=== PATIENT | female | born 1975 | race Two or more races ===

== ENCOUNTER 2024-08-12 06:25 | Inpatient (IN) | payer MEDICAID ==
[~2024-08-12] VITALS: Ht 157.5 cm; Wt 92.1 kg
[2024-08-12 07:20] VITALS: PULSE 142; RESP 20; O2SAT 95
--- NOTE | 2024-08-12 07:22 | ED.PDOC ---
History of Present Illness HPI Comments 49 year old female presents to the ED with a chief complaint of dizziness onset today (08/12/24). Patient states she bend over to steel pickler her phone from the floor, when she got up she began experiencing dizziness, sweats, shaking, palpitations that have not stopped since. Upon assessment patient's HR was 142- 150, BP 168/97. Denies any PMHx as well as fever, chills, nausea, vomiting, diarrhea, abdominal pain, shortness of breath, cough, congestion. No other symptoms or modifying factors present at this time. Chief Complaint: Dizziness Time Seen by MD: 06:15 Reviewed Notes: Medications, Allergies Allergies: Coded Allergies: NO KNOWN ALLERGIES (Unverified , 08/12/24) Information Source: Patient Mode of Arrival: Ambulatory Severity: Moderate Timing: Hours Duration: Since onset Prehospital treatment: None Past Medical History PAST MEDICAL HISTORY: Denies Surgical History: Denies all surgeries CARD READER History: No Pertinent CARD READER History Family History Family History: Reviewed,noncontributory to illness, No family hx of Cancer, No family hx of DM, No family hx of Heart mattie, No family hx of HTN, No family hx ofKidney mattie, No family hx of Liver mattie, No family hx of Lung mattie, No family hx of Stroke Social History Smoker: Non-Smoker Alcohol: Denies ETOH Use Drugs: Denies Drug Use Lives In: Home Constitutional: reports: sweats; denies: chills, diaphoresis, fatigue, fever, malaise, weakness, others EENTM: denies: blurred vision, double vision, ear bleeding, ear discharge, ear drainage, ear pain, ear ringing, eye pain, eye redness, hearing loss, mouth pain, mouth swelling, nasal discharge, nose bleeding, nose congestion, nose pain, photophobia, tearing, throat pain, throat swelling, voice changes, others Respiratory: denies: cough, hemoptysis, orthopnea, SOB at rest, shortness of breath, SOB with excertion, stridor, wheezing, others Cardiovascular: reports: palpitations; denies: chest pain, dizzy spells, diaphoresis, Dyspnea on exertion, edema, irregular heart beat, left arm pain, lightheadedness, PND, syncope, others Gastrointestinal: denies: abdomen distended, abdominal pain, blood streaked bowels, constipated, diarrhea, dysphagia, difficulty swallowing, hematemesis, melena, nausea, poor appetite, poor fluid intake, rectal bleeding, rectal pain, vomiting, others Genitourinary: denies: abnormal vagina bleeding, burning, dyspareunia, dysuria, flank pain, frequency, hematuria, incontinence, pain, , vagina discharge, urgency, others Neurological: reports: dizziness; denies: fainting, headache, left sided numbness, left sided weakness, numbness, paresthesia, pre-existing deficit, right sided numbness, right sided weakness, seizure, speech problems, tingling, tremors, weakness, others Musculoskeletal: denies: back pain, gout, joint pain, joint swelling, muscle pain, muscle stiffness, neck pain, others Integumetry: denies: bruises, change in color, change in hair/nails, dryness, laceration, lesions, lumps, rash, wounds, others Allergic/Immunocompromised: denies: Difficulty Healing, Frequent Infections, Hives, Itching, others Hematologic/Lymphatic: denies: anemia, blood clots, easy bleeding, easy bruising, swollen glands, others Endocrine: denies: excessive hunger, excessive sweating, excessive thirst, excessive urination, flushing, intolerance to cold, intolerance to heat, unexplained weight gain, unexplained weight loss, others Psychiatric: denies: anxiety, bipolar disorder, depression, hopeless, panic disorder, schizophrenia, sleepless, suicidal, others All Other Systems: Reviewed and Negative Physical Exam General Appearance: No Apparent Distress, Normal HEENT: Normal ENT Inspection, Pharynx Normal, TMs Normal Neck: Full Range of Motion, Non-Tender, Normal, Normal Inspection Respiratory: Chest Non-Tender, Lungs Clear, No Accessory Muscle Use, No Respiratory Distress, Normal Breath Sounds Cardiovascular: No Edema, No JVD, No Murmur, No Gallop, Normal Peripheral Pulses, Tachycardia Breast Exam: Deferred Gastrointestinal: No Organomegaly, Non Tender, No Pulsatile Mass, Normal Bowel Sounds, Soft Genitalia: Deferred Pelvic: Deferred Rectal: Deferred Extremities: No calf tenderness, Normal capillary refill, Normal inspection, Normal range of motion, Non-tender, No pedal edema Musculoskeletal : Apperance: Normal Neurologic: Alert, aging room operator II-XII nml as Tested, No Motor Deficits, Normal Affect, Normal Mood, No Sensory Deficits Cerebellar Function: Normal Reflexes: Normal Skin: Dry, Normal Color, Warm Lymphatic: No Adenopathy Was a procedure done? Was a procedure done?: No Differential Dx Considerations may include: Viral syndrome, ACS, urinary tract infection, cardiac arrhythmia X-Ray, Labs, Meds, VS Vital Signs Date Time Temp Pulse Resp B/P (MAP) Pulse Ox O2 Delivery O2 Flow Rate FiO2 08/12/24 08:45 122 162/71 (101) 08/12/24 07:36 130 08/12/24 07:26 142 176/104 145 179/98 08/12/24 07:20 142 20 95 Room Air* 0 21 08/12/24 06:40 138 08/12/24 06:30 98.0 142 18 168/97 (120) 96 Lab Test 08/12/24 08:06 08/12/24 07:02 08/12/24 06:40 Range/Units Troponin I High Sensitivity < 3 L < 3 L </=34 ng/L White Blood Count 12.1 H 4.4-10.8 10^3/uL Red Blood Count 5.44 H 4.0-5.20 10^6/uL Hemoglobin 14.1 12.2-16.2 g/dL Hematocrit 42.2 36.0-46.0 % Mean Corpuscular Volume 77.6 L 80.0-100.0 fL Mean Corpuscular Hemoglobin 25.8 L 28.0-32.0 pg Mean Corpuscular Hemoglobin Concent 33.3 32.0-36.0 g/dL Red Cell Distribution Width 15.7 H 11.8-14.3 % Platelet Count 385 140-450 10^3/uL Mean Platelet Volume 8.9 6.9-10.8 fL Neutrophils (%) (Auto) 37.0-80.0 % Lymphocytes (%) (Auto) 10.0-50.0 % Monocytes (%) (Auto) 0.0-12.0 % Basophils (%) (Auto) 0.0-2.0 % Neutrophils # (Auto) 1.6-8.6 10 ^3/uL Lymphocytes # (Auto) 0.4-5.4 10 ^3/uL Monocytes # (Auto) 0-1.3 10 ^3/uL Differential Total Cells Counted 100.0 100 Neutrophils % (Manual) 52 37.0-80.0 Band Neutrophils % (Manual) 0 Lymphocytes % (Manual) 44 10.0-50.0 Monocytes % (Manual) 4 0-12 Eosinophils % (Manual) 0 0-7 Basophils % (Manual) 0 0.0-2.0 Metamyelocytes % (manual) 0 Myelocytes % (Manual) 0 Promyelocytes % (Manual) 0 Blast Cells % (Manual) 0 Reactive Lymphocytes 0 Platelet Estimate Adequate Large Platelets Few Sodium Level 137 136-145 mmol/L Potassium Level 4.0 3.5-5.1 mmol/L Chloride Level 100 98-107 mmol/L Carbon Dioxide Level 25 20-31 mmol/L Anion Gap 12 5-15 Blood Urea Nitrogen 13 9-23 mg/dL Creatinine 0.65 0.550-1.02 mg/dL Glomerular Filtration Rate Calc 108 >90 mL/min BUN/Creatinine Ratio 20.0 10.0-20.0 Serum Glucose 120 H 74-106 mg/dL Calcium Level 9.6 8.7-10.4 mg/dL Urine Color Colorless Yellow Urine Clarity Turbid H Clear Urine pH 7.0 5.0-9.0 Urine Specific [place] 1.018 1.001-1.035 Urine Protein 1+ H Negative Urine Ketones Negative Negative Urine Blood 1+ H Negative /uL Urine Nitrite Negative Negative Urine Bilirubin Negative Negative Urine Urobilinogen Normal Negative mg/dL Urine Leukocyte Esterase 2+ Negative /uL Urine RBC 22 0 - 4 /hpf Urine Microscopic WBC 20 H 0-5 /HPF Urine Squamous Epithelial Cells Few <5 /hpf Urine Amorphous Crystals Few None Seen /hpf Urine Bacteria Few H None Seen /hpf Urine Glucose Normal Normal mg/dL Urine Test Negative Negative Current Medications Medications (Trade) Dose Ordered Sig/Stef Route Start Time Stop Time Status Last Admin Sodium Chloride 1,000 ml @ 1,000 mls/hr Q1H ONCE IV 08/12/24 07:30 08/12/24 08:29 DC 08/12/24 07:40 Ondansetron HCl (Zofran) 4 mg ONCE ONCE IV 08/12/24 07:30 08/12/24 07:31 DC 08/12/24 07:[address] [address] Ph: [phone] DIAGNOSTIC IMAGING Diagnostic Imaging Report : [id number] Signed PATIENT: DILLONLELA RACCT: [id number] UNIT: [id number] : 1975 LOC: ER ROOM / BED: / AGE / SEX: 49 / F ADM STATUS: REG ER SERVICE 5 ORDERING PHYSICIAN: SPENCER STEINER MD PROCEDURE(s): CXRP - CHEST PORTABLE REASON: near syncope ORDER NUMBER(s): [id number], ACCESSION NUMBER(s): [id number] EXAM: XY CHEST PORTABLE Indication: near syncope Technique: Single frontal view of the chest was obtained Comparison: None FINDINGS: Lines and Tubes: None Lungs: No focal consolidation. Pleura: No effusion. No pneumothorax. Cardiomediastinal contours: Unremarkable Bones: No acute osseous abnormality. IMPRESSION: No acute cardiopulmonary disease. ATED BY: AURA VICTOR MD DICTATED DATE/TIME: 08/12/24828 SIGNED BY: AURA VICTOR MD SIGNED DATE/TIME: 08/12/24828 CC: Time of 1ST Reevaluation: 06:45 Reevaluation 1ST: Unchanged Patient Education/Counseling: Diagnosis, Treatment, Prognosis Family Education/Counseling: No Family Present Additional Information The following tests were ordered, and results were reviewed by me: EKG -x3, BMP, CBC, TROP -x3, XY CHEST, PREGUA, UA I reviewed and agreed with the following test results read by other providers: XY CHEST I discussed treatment and results with medical personnel and: patient Departure 1 Departure Time of Disposition: 10:05 (Patient has a urinary tract infection causing tachycardia your syncope. We will empirically cover patient with antibiotics fluids and admit patient for further workup) Impression: Primary Impression: Complicated urinary tract infection Additional Impression: Near syncope Disposition: ADMITTED INPATIENT Admit to: Med Surg Condition: Serious Critical Care Note Critical Care Time?: No Stability Stability form required: No I personally scribed for SPENCER STEINER MD ([email or web address]) on 08/12/24 at 07:22. Electronically submitted by Suzy Odell ([email or web address]). I personally scribed for SPENCER STEINER MD ([email or web address]) on 08/12/24 at 07:41. Electronically submitted by Suzy Odell ([email or web address]). I personally scribed for SPENCER STEINER MD ([email or web address]) on 08/12/24 at 08:35. Electronically submitted by Suzy Odell ([email or web address]). SPENCER STEINER MD Aug 12, 2024 07:22
[2024-08-12 07:34] LABS: Urine Amorphous Crystal FEW /hpf (None Seen); Urine Bacteria FEW /hpf (None Seen); Urine Blood 1+ /uL (Negative); Urine Clarity Turbid (Clear); Urine Color Colorless (Yellow); Urine Protein, UAD 1+ (Negative); Urine Specific Gravity 1.018 (1.001-1.035); Urine Squamous Epithelial Cell FEW /hpf (<5); Urine Urobilinogen Normal (Negative); Urine WBC 20 /HPF (0-5)
--- NOTE | 2024-08-12 07:37 | ECG ---
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
[2024-08-12 07:38] LABS: Hematocrit 42.2 % (36.0-46.0); Hemoglobin 14.1 g/dL (12.2-16.2); Mean Corpuscular Hemoglobin 25.8 pg (28.0-32.0); Mean Corpuscular Hgb Conc. 33.3 g/dL (32.0-36.0); Mean Corpuscular Volume 77.6 fL (80.0-100.0); Platelet Count (auto) 385 10^3/uL (140-450); Red Blood Cells 5.44 10^6/uL (4.0-5.20); Red Cell Distribution Width 15.7 % (11.8-14.3); White Blood Cell 12.1 10^3/uL (4.4-10.8)
[2024-08-12] MEDS: SODIUM CHLORIDE 0.9% 1,000 ML IV ONE ×3 (07:40→10:01)
[2024-08-12] MEDS: ONDANSETRON HCL 4 MG/2 ML VIAL IV ONE (07:40)
[2024-08-12 08:09] LABS: Chloride 100 mmol/L (98-107); Sodium 137 mmol/L (136-145)
[2024-08-12 08:10] LABS: Anion Gap 12 (5-15); Calcium 9.6 mg/dL (8.7-10.4); Carbon Dioxide 25 mmol/L (20-31)
[2024-08-12 08:15] LABS: Blood Urea Nitrogen 13 mg/dL (9-23)
[2024-08-12 08:16] LABS: Glucose 120 mg/dL (74-106)
[2024-08-12 08:23] LABS: Band Neutrophils % (manual) 0; Basophils % (manual) 0 (0.0-2.0); Blast Cells 0; Eosinophils % (manual) 0 (0-7); Metamyelocytes % 0; Myelocytes % 0; Promyelocytes % 0; Reactive Lymphocytes 0
--- NOTE | 2024-08-12 08:30 | DVH ---
EXAM: XY CHEST PORTABLE Indication: near syncope Technique: Single frontal view of the chest was obtained Comparison: None FINDINGS: Lines and Tubes: None Lungs: No focal consolidation. Pleura: No effusion. No pneumothorax. Cardiomediastinal contours: Unremarkable Bones: No acute osseous abnormality. IMPRESSION: No acute cardiopulmonary disease.
--- NOTE | 2024-08-12 09:39 | ECG ---
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
[2024-08-12] MEDS ORDERED: CEFEPIME 2GM/50ML NS 50 ML IV ONE (09:45)
[2024-08-12 09:49] LABS: Lymphocytes % (manual) 44 (10.0-50.0); Monocytes % (manual) 4 (0-12)
[2024-08-12 09:50] LABS: Large Platelets FEW
[2024-08-12 09:51] LABS: Platelet Estimate Adequate
[2024-08-12] MEDS: CEFEPIME 2GM/50ML NS 50 ML IV ONE (10:02)
[2024-08-12] MEDS: VANCOMYCIN 1GM/250ML KIT 200 ML IV ONE (10:22)
[2024-08-12] MEDS ORDERED: DOCUSATE SOD 100 MG CAP PO PRN ×2 (10:30→10:45)
[2024-08-12] MEDS ORDERED: NITROGLYCERIN 0.4 MG SL TAB SL PRN ×2 (10:30→10:45)
[2024-08-12] MEDS ORDERED: HYDROcodone-ACET 5/325MG TAB PO PRN ×2 (10:30→10:45)
[2024-08-12] MEDS ORDERED: ACETAMINOPHEN 325 MG TAB PO PRN ×2 (10:30→10:45)
[2024-08-12] MEDS ORDERED: ONDANSETRON HCL 4 MG/2 ML VIAL IV PRN ×2 (10:30→10:45)
[2024-08-12] MEDS ORDERED: MORPHINE SULFATE INJ 2 MG/ml SYRG IV PRN ×2 (10:30→10:45)
--- NOTE | 2024-08-12 10:30 | DVHHP2 ---
History of Present Illness Reason for Visit: Dizziness History of Present Illness Sherrie Vora is a 49-year-old female, with no significant past medical history, who came to the ER for dizziness. Patient states she woke up about 0600, went to bathroom without any problems. When she got back into bed and reached for her phone the room began spinning. She states she felt palpitations, began shaking, and felt tingling throughout her body. The symptoms continued, so she told her spouse that she needs to go to the ER. She had him get her clothes because she was too unstable to stand and walk. On assessment, she is still experiencing tingling in bilateral hands and remains tachycardic. Past Surgical History: None Smoke: No ALCOHOL: none Drugs: None Lives: with Family Domestic Violence: Neg Review of Systems Constitutional: No: Fever, Chills, Sweats, Weakness, Malaise, Other Eyes: No: Pain, Vision change, Conjunctivae inflammation, Eyelid inflammation, Other, Redness ENT: No: Ear pain, Ear discharge, Nose pain, Nose discharge, Nose congestion, Mouth pain, Mouth swelling, Throat pain, Throat swelling, Other Respiratory: No: Cough, Dry, Shortness of breath, SOB with excertion, Wheezing, Hemoptysis, Pleuritic Pain, Sputum, Wheezing, Other Cardiovascular: Palpitations, Lt Headedness; No: Chest Pain, Orthopnea, Paroxy smal Noc. Dyspnea, Edema, Other Gastrointestinal: No: Nausea, Vomiting, Abdominal Pain, Diarrhea, Constipation, Melena, Hematochezia, Other Genitourinary: No Dysuria, No Frequency, No Incontinence, No Hematuria, No Retention, No Other Musculoskeletal: No: other, neck pain, shoulder pain, arm pain, back pain, hand pain, leg pain, foot pain Skin: No: Rash, Lesions, Jaundice, Bruising, Other Neurological: Numbness (tingling throughout body), Other (Dizziness, ); No: Weakness, Incoordination, Change in speech, Confusion, Seizures Allergies: Coded Allergies: NO KNOWN ALLERGIES (Unverified , 08/12/24) Exam Vital Signs Vital Signs Date Time Temp Pulse Resp B/P (MAP) Pulse Ox O2 Delivery O2 Flow Rate FiO2 08/12/24 09:38 117 08/12/24 08:45 162/71 (101) 08/12/24 07:20 20 95 Room Air* 0 21 08/12/24 06:30 98.0 General Appearance: Alert, Oriented X3, Cooperative, moderate distress HEENT: Atraumatic, PERRLA Respiratory: Clear to auscultation, Normal air movement Cardiovascular: Normal S1, Normal S2, Other (Tachycardia) Abdominal: Normal bowel sounds, Soft, No tenderness, No hepatospenomegaly Extremities: No clubbing, No cyanosis, No edema, Normal pulses, No tenderness/swelling Skin: No rashes, No breakdown, No significant lesion Neuro: Normal gait, Normal speech, Strength at 5/5 X4 ext, Normal tone Psych/Mental Status: Mental status NL, Mood NL Labs/Xrays Labs Test 08/12/24 09:59 08/12/24 07:02 08/12/24 06:40 Range/Units White Blood Count 12.1 H 4.4-10.8 10^3/uL Red Blood Count 5.44 H 4.0-5.20 10^6/uL Hemoglobin 14.1 12.2-16.2 g/dL Hematocrit 42.2 36.0-46.0 % Mean Corpuscular Volume 77.6 L 80.0-100.0 fL Mean Corpuscular Hemoglobin 25.8 L 28.0-32.0 pg Mean Corpuscular Hemoglobin Concent 33.3 32.0-36.0 g/dL Red Cell Distribution Width 15.7 H 11.8-14.3 % Platelet Count 385 140-450 10^3/uL Mean Platelet Volume 8.9 6.9-10.8 fL Neutrophils (%) (Auto) 37.0-80.0 % Lymphocytes (%) (Auto) 10.0-50.0 % Monocytes (%) (Auto) 0.0-12.0 % Basophils (%) (Auto) 0.0-2.0 % Neutrophils # (Auto) 1.6-8.6 10 ^3/uL Lymphocytes # (Auto) 0.4-5.4 10 ^3/uL Monocytes # (Auto) 0-1.3 10 ^3/uL Differential Total Cells Counted 100.0 100 Neutrophils % (Manual) 52 37.0-80.0 Band Neutrophils % (Manual) 0 Lymphocytes % (Manual) 44 10.0-50.0 Monocytes % (Manual) 4 0-12 Eosinophils % (Manual) 0 0-7 Basophils % (Manual) 0 0.0-2.0 Metamyelocytes % (manual) 0 Myelocytes % (Manual) 0 Promyelocytes % (Manual) 0 Blast Cells % (Manual) 0 Reactive Lymphocytes 0 Platelet Estimate Adequate Large Platelets Few Sodium Level 137 136-145 mmol/L Potassium Level 4.0 3.5-5.1 mmol/L Chloride Level 100 98-107 mmol/L Carbon Dioxide Level 25 20-31 mmol/L Anion Gap 12 5-15 Blood Urea Nitrogen 13 9-23 mg/dL Creatinine 0.65 0.550-1.02 mg/dL Glomerular Filtration Rate Calc 108 >90 mL/min BUN/Creatinine Ratio 20.0 10.0-20.0 Serum Glucose 120 H 74-106 mg/dL Calcium Level 9.6 8.7-10.4 mg/dL Urine Color Colorless Yellow Urine Clarity Turbid H Clear Urine pH 7.0 5.0-9.0 Urine Specific [place] 1.018 1.001-1.035 Urine Protein 1+ H Negative Urine Ketones Negative Negative Urine Blood 1+ H Negative /uL Urine Nitrite Negative Negative Urine Bilirubin Negative Negative Urine Urobilinogen Normal Negative mg/dL Urine Leukocyte Esterase 2+ Negative /uL Urine RBC 22 0 - 4 /hpf Urine Microscopic WBC 20 H 0-5 /HPF Urine Squamous Epithelial Cells Few <5 /hpf Urine Amorphous Crystals Few None Seen /hpf Urine Bacteria Few H None Seen /hpf Urine Glucose Normal Normal mg/dL Urine Test Negative Negative EXAM: XY CHEST PORTABLE FINDINGS: Lines and Tubes: None Lungs: No focal consolidation. Pleura: No effusion. No pneumothorax. Cardiomediastinal contours: Unremarkable Bones: No acute osseous abnormality. IMPRESSION: No acute cardiopulmonary disease. Assessment/Plan Assessment/Plan Assessment: Complicated urinary tract infection, Possible vertigo, Possible SVT, Hyperglycemia, Plan: Admit to Tele, IV hydration, IV antibiotics, ECHO, Consider cardiology consult, A1c, TSH, Urine culture, Blood cultures, Plan discussed with: Patient Date of Service: Aug 12, 2024 Billing Provider: TONY ROSARIO Common Visit Codes: [id number] INP/OBS CARE (MOD) TONY ROSARIO Aug 12, 2024 10:30
[2024-08-12 11:40] VITALS: BP 126/72; PULSE 126; RESP 16; TEMP 92.8; O2SAT 98
[2024-08-12 13:00] VITALS: BP 158/75; PULSE 117; RESP 16; TEMP 98.2; O2SAT 97
--- NOTE | 2024-08-12 13:46 | ECG ---
[facility] Test Date: 2024-08-12 Test Time: 06:40:57 Pat Name: LELA CARRANZA Department: ED Room: [address] [place] [address] Gender: F Marketing Administrator: PINO : 1975 Requested By: EMERGENCY EMERGENCY Order Number: [id number] Reading MD: William Ro Measurements Intervals [place] Rate: 138 P: 33 [place]: 70 QRS: 33 QRSD: 79 T: -85 QT: 311 QTc: 472 Interpretive Statements Sinus tachycardia Borderline repol abnormality, diffuse leads Electronically Signed On 08-16-2024 17:27:19 PST by William Ro Please click the below link to view image of tracing.
[2024-08-12 17:00] VITALS: BP 148/85; PULSE 116; RESP 18; TEMP 98.3; O2SAT 97
[2024-08-12 20:54] VITALS: BP 156/97; PULSE 122; RESP 20; TEMP 98.2; O2SAT 96
[2024-08-12 21:00] VITALS: BP 119/77; PULSE 107; RESP 20; TEMP 97.6; O2SAT 93
[2024-08-12] MEDS: LABETALOL HCL 20 MG/4 ML VL IV ONE (21:48)
[2024-08-13] VITALS (8 sets, daily range): BP systolic 118–157; BP diastolic 77–85; PULSE 90–107; RESP 18–20; TEMP 97.7–98.1; O2SAT 94–96
[2024-08-13 07:44] LABS: Basophils # (auto) 0 10 ^3/uL (0-0.2); Basophils % (auto) 0.6 % (0.0-2.0); Eosinophils # (auto) 0.1 10 ^3/uL (0-0.8); Lymphocytes # (auto) 1.8 10 ^3/uL (0.4-5.4); Neutrophils # (auto) 5.4 10 ^3/uL (1.6-8.6); Nucleated Red Blood Cells % 0.1 %; Red Blood Cells 5.22 10^6/uL (4.0-5.20); White Blood Cell 7.8 10^3/uL (4.4-10.8)
[2024-08-13 07:49] LABS: Eosinophils % (auto) 0.7 % (0.0-7.0); Hematocrit 40.4 % (36.0-46.0); Hemoglobin 13.1 g/dL (12.2-16.2); Lymphocytes % (auto) 22.7 % (10.0-50.0); Mean Corpuscular Hemoglobin 25.1 pg (28.0-32.0); Mean Corpuscular Hgb Conc. 32.4 g/dL (32.0-36.0); Mean Corpuscular Volume 77.4 fL (80.0-100.0); Monocytes # (auto) 0.6 10 ^3/uL (0-1.3); Monocytes % (auto) 7.3 % (0.0-12.0); Neutrophils % (auto) 68.7 % (37.0-80.0); Platelet Count (auto) 372 10^3/uL (140-450); Red Cell Distribution Width 15.9 % (11.8-14.3)
[2024-08-13 08:03] LABS: Alanine Aminotransferase 17 U/L (7-40); Albumin 4.5 g/dL (3.2-4.8); Alkaline Phosphatase 100 U/L (46-116); Anion Gap 11 (5-15); Calcium 9.7 mg/dL (8.7-10.4); Carbon Dioxide 24 mmol/L (20-31); Chloride 104 mmol/L (98-107); Glucose 105 mg/dL (74-106); Potassium 3.6 mmol/L (3.5-5.1); Sodium 139 mmol/L (136-145)
[2024-08-13 08:04] LABS: Bilirubin, Total 0.4 mg/dL (0.2-1.0); Total Protein 6.9 g/dL (5.7-8.2)
[2024-08-13 08:07] LABS: Aspartate Aminotransferase 13 U/L (13-40); Blood Urea Nitrogen 7 mg/dL (9-23)
[2024-08-13] MEDS: cefTRIAXone 1GM/50ML D5W 50 ML IV SCH (09:02)
[2024-08-13] MEDS ORDERED: BACDST PO (16:54)
--- NOTE | 2024-08-13 18:23 | DVHDS2 ---
Discharge Summary Date of Admission Aug 12, 2024 at 10:22 Date of Discharge: Aug 13, 2024 Labs/Diagnostic Data: Laboratory Results Test 08/13/24 06:20 08/12/24 09:59 08/12/24 07:03 08/12/24 07:02 White Blood Count 7.8 10^3/uL (4.4-10.8) Red Blood Count 5.22 10^6/uL (4.0-5.20) Hemoglobin 13.1 g/dL (12.2-16.2) Hematocrit 40.4 % (36.0-46.0) Mean Corpuscular Volume 77.4 fL (80.0-100.0) Mean Corpuscular Hemoglobin 25.1 pg (28.0-32.0) Mean Corpuscular Hemoglobin Concent 32.4 g/dL (32.0-36.0) Red Cell Distribution Width 15.9 % (11.8-14.3) Platelet Count 372 10^3/uL (140-450) Mean Platelet Volume 7.8 fL (6.9-10.8) Neutrophils (%) (Auto) 68.7 % (37.0-80.0) Lymphocytes (%) (Auto) 22.7 % (10.0-50.0) Monocytes (%) (Auto) 7.3 % (0.0-12.0) Eosinophils (%) (Auto) 0.7 % (0.0-7.0) Basophils (%) (Auto) 0.6 % (0.0-2.0) Neutrophils # (Auto) 5.4 10 ^3/uL (1.6-8.6) Lymphocytes # (Auto) 1.8 10 ^3/uL (0.4-5.4) Monocytes # (Auto) 0.6 10 ^3/uL (0-1.3) Eosinophils # (Auto) 0.1 10 ^3/uL (0-0.8) Basophils # (Auto) 0 10 ^3/uL (0-0.2) Nucleated Red Blood Cells 0.1 % Sodium Level 139 mmol/L (136-145) Potassium Level 3.6 mmol/L (3.5-5.1) Chloride Level 104 mmol/L (98-107) Carbon Dioxide Level 24 mmol/L (20-31) Anion Gap 11 (5-15) Blood Urea Nitrogen 7 mg/dL (9-23) Creatinine 0.54 mg/dL (0.550-1.02) Glomerular Filtration Rate Calc 113 mL/min (>90) BUN/Creatinine Ratio 13.0 (10.0-20.0) Serum Glucose 105 mg/dL (74-106) Calcium Level 9.7 mg/dL (8.7-10.4) Total Bilirubin 0.4 mg/dL (0.2-1.0) Aspartate Amino Transferase (AST) 13 U/L (13-40) Alanine Aminotransferase (ALT) 17 U/L (7-40) Alkaline Phosphatase 100 U/L (46-116) Total Protein 6.9 g/dL (5.7-8.2) Albumin 4.5 g/dL (3.2-4.8) Lactic Acid Level 1.9 mmol/L (0.4-2.0) Troponin I High Sensitivity 4 ng/L (</=34) Thyroid Stimulating Hormone (TSH) 1.60 uIU/mL (0.55-4.78) Differential Total Cells Counted 100.0 (100) Neutrophils % (Manual) 52 (37.0-80.0) Band Neutrophils % (Manual) 0 Lymphocytes % (Manual) 44 (10.0-50.0) Monocytes % (Manual) 4 (0-12) Eosinophils % (Manual) 0 (0-7) Basophils % (Manual) 0 (0.0-2.0) Metamyelocytes % (manual) 0 Myelocytes % (Manual) 0 Promyelocytes % (Manual) 0 Blast Cells % (Manual) 0 Reactive Lymphocytes 0 Platelet Estimate Adequate Large Platelets Few Hemoglobin A1c 5.3 % A1C (<5.7) Test 08/12/24 06:40 Urine Color Colorless (Yellow) Urine Clarity Turbid (Clear) Urine pH 7.0 (5.0-9.0) Urine Specific [place] 1.018 (1.001-1.035) Urine Protein 1+ (Negative) Urine Ketones Negative (Negative) Urine Blood 1+ /uL (Negative) Urine Nitrite Negative (Negative) Urine Bilirubin Negative (Negative) Urine Urobilinogen Normal mg/dL (Negative) Urine Leukocyte Esterase 2+ /uL (Negative) Urine RBC 22 /hpf (0 - 4) Urine Microscopic WBC 20 /HPF (0-5) Urine Squamous Epithelial Cells Few /hpf (<5) Urine Amorphous Crystals Few /hpf (None Seen) Urine Bacteria Few /hpf (None Seen) Urine Glucose Normal mg/dL (Normal) Urine Test Negative (Negative) Other Laboratory Tests 08/13/24 06:20 Brief Hx & Hospital Course: Sherrie Vora is a 49-year-old female, with no significant past medical history, who came to the ER for dizziness. Patient states she woke up about 0600, went to bathroom without any problems. When she got back into bed and reached for her phone the room began spinning. She states she felt palpitations, began shaking, and felt tingling throughout her body. The symptoms continued, so she told her spouse that she needs to go to the ER. She had him get her clothes because she was too unstable to stand and walk. On assessment, she is still experiencing tingling in bilateral hands and remains tachycardic. Found to have UTI, and treated with IV abx tachycardia and hyperglycemia resolved with no SVT noted Echo was pending on discharge Condition at Discharge: Good Final Diagnosis/Problems List Complicated urinary tract infection SVT ruled out Tachycardia resolved dizziness resolved Hyperglycemia resolved Discharge Disposition: Home Discharge Instruct/Medications Diet: Regular Activity: No Restrictions, As Tolerated Discharge Statement: "Patient was advised to return to the ER or call 911 if any headaches, dizziness, shortness of breath, chest pain, abdominal pain, bleeding, fevers, or worsening of medical condition. Patient was counseled about treatment plan, medications, possible side effects, patientverbalized understanding. All questions were answered to the best of my ability. This discharge took greater then 30 minutes in planning, reviewing documentation, counseling the patient, and discussing with other team members." ASSESSMENT ASSESSMENT Assessment Date of Service: Aug 13, 2024 Billing Provider: RAFAT HALL MD Common Visit Codes: [id number] DISCH DAY >30min RAFAT HALL MD Aug 13, 2024 18:22
--- NOTE | 2024-08-13 19:58 | DVHSR ---
APPROVED REPORT EXAM: Two-dimensional and M-mode echocardiogram with Doppler and color Doppler. Blood Pressure: 157/84 mmHg INDICATION Dizziness and Vertigo Palpitations Tachycardia RISK FACTORS Obesity: Height: 5'2, Weight: 202 DIMENSIONS LVDd3.8 (3.8-5.7cm)LA (2D)4.1 (1.9-4.0cm)Aortic Root3.1 (2.0-3.7cm) LVDs2.8 (2.5-4.0cm)LA (MM) (1.9-4.0cm)Aortic Cusp Exc1.6 (1.5-2.0cm) EF (%) 55.0 (55-70%)Rt. Atrium2.6 (1.9-4.0cm)Asc. Aorta cm IVSd0.9 (0.7-1.1cm)RV (D)3.4 (1.8-2.4cm) PWd0.8 (0.7-1.1cm) Mitral Valve MitralMitral Stenosis E wave0.99m/sMV Mean GR.mmHg A wave1.20m/sMV Peak GR.100mmHg E/A ratio0.82D MVAcm2 DECEL [id number] 1/2 Timems Aortic Valve Aortic ValveAortic Stenosis V11.34m/Vlad Mean GR.5mmHg V21.56m/Vlad Peak GR.10mmHg LVOT Diameter2.0 (1.8-2.4cm)Doppler AVA2.70cm2 Pulmonic Valve V21.21m/s Tricuspid Valve TR Velocity2.76m/s [id number] Other Information Technically limited study due to patient position.body habitus. Conclusion Technically good study. Sinus tachycardia. Mild left atrial enlargement. Valves appear to be structurally normal. EF of 65% with normal RV function. Mild TR. No pericardial effusion masses or vegetations.
== END 2024-08-13 19:08 | disposition home or self-care (01) | DRG 463 ==
LOC: ER 06:25 → OVERFLOW 10:22 → ER 10:24 → TELE-EAST 22:00
PROVIDERS: ADMIT Hospitalist; ATTEND Hospitalist
DX: N39.0 Urinary tract infection, site not specified (principal); R65.10 Systemic inflammatory response syndrome (SIRS) of non-infectious origin without acute organ dysfunction; R00.0 Tachycardia, unspecified; R73.9 Hyperglycemia, unspecified; Z79.899 Other long term (current) drug therapy
CPT/HCPCS: 36415; 71045; 80048; 80053; 81001; 81025; 83036; 83605; 84443; 84484; 85007; 85025; 85027; 87040; 87086; 93005; 93306; 96361; 96365; 96375; G0378; J0692; J2405